=== PATIENT | female | born 1990 | race Caucasian/White ===

== ENCOUNTER → 2018-05-01 | Outpatient (CLI) | payer OTHER ==
[~2018-05-01] MED LIST: BIRTH CONTROL1 EAC1 PO; FLOMAX0.4 MG PO; MACROBID100 M1 PO; MOTRIN800 MG PO; PERCOCET 325 MG1 TA2 PO; PERCOCET 325 MG1 TA5 PO; PYRIDIUM200 M1 PO; ZITHROMAX Z PA250 MG PO
== END | disposition home or self-care (01) ==
LOC: US 16:51
DX: Z34.01 Encounter for supervision of normal first pregnancy, first trimester (principal); Z3A.08 8 weeks gestation of pregnancy

== ENCOUNTER → 2018-06-15 | Outpatient (CLI) | payer OTHER | END | disposition home or self-care (01) | LOC: US 06:28 | DX: O46.92 Antepartum hemorrhage, unspecified, second trimester (principal); Z3A.15 15 weeks gestation of pregnancy ==

== ENCOUNTER → 2018-07-07 | Outpatient (CLI) | payer OTHER | END | disposition home or self-care (01) | LOC: US 16:50 | DX: Z34.92 Encounter for supervision of normal pregnancy, unspecified, second trimester (principal); Z3A.18 18 weeks gestation of pregnancy ==

== ENCOUNTER → 2018-08-28 | Outpatient (CLI) | payer OTHER | END | disposition home or self-care (01) | LOC: US 11:00 | DX: Z34.92 Encounter for supervision of normal pregnancy, unspecified, second trimester (principal); Z3A.25 25 weeks gestation of pregnancy ==

== ENCOUNTER → 2020-03-31 | Outpatient (CLI) | payer OTHER ==
[2020-03-31 13:17] LABS: BASO # 0.1 10*3/uL (0.0-0.1); BASO % 1.6 % (0.0-1.0); EOS # 0.1 10*3/uL (0.0-0.4); EOS % 1.4 % (1.0-4.0); HEMATOCRIT 40.5 % (37.0-47.0); LYMPH # 1.8 10*3/uL (1.3-4.4); LYMPH % 31.2 % (27.0-41.0); MEAN CELL VOLUME 90.2 fl (81.0-99.0); MEAN CORPUSCULAR HGB 29.8 pg (27.0-31.0); MEAN CORPUSCULAR HGB CONC 33.1 g/dl (33.0-37.0); MEAN PLATELET VOLUME 9.7 fl (9.6-12.3); MONO # 0.4 10*3/uL (0.1-1.0); MONO % 7.2 % (3.0-9.0); NEUT # 3.3 10*3/uL (2.3-7.9); NEUT % 58.4 % (47.0-73.0); PLATELET COUNT AUTOMATED 327 10*3/uL (130-400); RED BLOOD COUNT 4.49 10*6/uL (4.10-5.10); WHITE BLOOD COUNT 5.7 10*3/uL (4.8-10.8)
[2020-03-31 13:36] LABS: B-hCG (QUALITATIVE) NEGATIVE (NEGATIVE)
[2020-04-01 09:07] LABS: FOLLICLE STIMULATING HORMONE 2.7 mIU/mL (.); LUTEINIZING HORMONE 6.3 mIU/mL (.)
[2020-04-02 14:12] LABS: TESTOSTERONE FREE, (DIRECT) 1.2 pg/mL (0.0-4.2)
== END | disposition home or self-care (01) ==
LOC: US 12:30 → LAB 12:32
PROVIDERS: Obstetrics & Gynecology
DX: N93.9 Abnormal uterine and vaginal bleeding, unspecified (principal); N94.10 Unspecified dyspareunia

== ENCOUNTER → 2021-06-01 | Outpatient (CLI) | payer OTHER ==
[2021-06-01 13:55] LABS: BASO # 0.1 10*3/uL (0.0-0.1); BASO % 1.2 % (0.0-1.0); EOS # 0.1 10*3/uL (0.0-0.4); EOS % 1.7 % (1.0-4.0); HEMATOCRIT 43.8 % (37.0-47.0); LYMPH # 1.5 10*3/uL (1.3-4.4); LYMPH % 26.5 % (27.0-41.0); MEAN CELL VOLUME 91.4 fl (81.0-99.0); MEAN CORPUSCULAR HGB 30.3 pg (27.0-31.0); MEAN CORPUSCULAR HGB CONC 33.1 g/dl (33.0-37.0); MEAN PLATELET VOLUME 9.8 fl (9.6-12.3); MONO # 0.3 10*3/uL (0.1-1.0); MONO % 4.3 % (3.0-9.0); NEUT # 3.8 10*3/uL (2.3-7.9); NEUT % 64.9 % (47.0-73.0); PLATELET COUNT AUTOMATED 323 10*3/uL (130-400); RED BLOOD COUNT 4.79 10*6/uL (4.10-5.10); RED CELL DISTRI WIDTH 13.2 % (0-14.5); WHITE BLOOD COUNT 5.8 10*3/uL (4.8-10.8)
[2021-06-01 14:11] LABS: ALKALINE PHOSPHATASE 45 U/L (45-117); BUN 14 mg/dl (7-24); CHLORIDE 109 mmol/L (98-107); CHOLESTEROL 194 mg/dL (<200); CREATININE 0.81 mg/dL (0.55-1.02); LDL CHOLESTEROL 105 mg/dL (9-159); POTASSIUM 4.1 mmol/L (3.5-5.1); SGOT/AST 12 IU/L (3-35); SGPT/ALT 19 U/L (12-78); SODIUM 138 mmol/L (136-145); TOTAL PROTEIN 8.6 gm/dL (6.4-8.2); TRIGLYCERIDES 75 mg/dl (<150)
== END | disposition home or self-care (01) ==
LOC: LAB 13:00 → US 13:00
PROVIDERS: ATTEND Nurse Practitioner Family
DX: E04.1 Nontoxic single thyroid nodule (principal); Z13.220 Encounter for screening for lipoid disorders; Z00.00 Encounter for general adult medical examination without abnormal findings